=== PATIENT | male | born 1995 | race African-American/Black ===

== ENCOUNTER 2017-08-10 09:49 | Emergency (ER) | payer SELFPAY ==
[~2017-08-10] VITALS: Ht 167.6 cm; Wt 77.1 kg
[2017-08-10 10:06] VITALS: BP 146/85
[2017-08-10] MEDS ORDERED: SULF1TAB24 PO (10:23)
--- NOTE | 2017-08-10 10:23 | PHYS DOC ---
Past Medical History Past Medical History: No Pertinent History Past Surgical History: No Surgical History Additional Information: 4-7 CIGS/DAY Alcohol Use: Rarely Drug Use: None Adult General Chief Complaint Chief Complaint: EYE PROBLEMS HPI HPI Patient is a 22 year old male presents to the emergency department stating that he check his blood pressure this morning it was elevated. Patient states he only took his blood pressure once and it was on a monitor of the family members. Patient denies any headaches, blurred vision or any nausea vomiting denies any chest pain or shortness of air. Denies any lower leg swelling. Patient states that he is also requesting to be seen for redness above the right eyebrow that developed this morning with some swelling noted into the right upper eyelid. Patient denies fever, chills or any nausea or vomiting. Review of Systems Review of Systems Constitutional: Denies fever or chills [] Eyes: Denies change in visual acuity, redness, or eye pain [] HENT: Denies nasal congestion or sore throat [] Respiratory: Denies cough or shortness of breath [] Cardiovascular: No additional information not addressed in HPI [] GI: Denies abdominal pain, nausea, vomiting, bloody stools or diarrhea [] : Denies dysuria or hematuria [] Musculoskeletal: Denies back pain or joint pain [] Integument: Denies rash or skin lesions. Complaint of redness above the right eyebrow with swelling above the right eyebrow and down into the right upper eyelid. [] Neurologic: Denies headache, focal weakness or sensory changes [] Endocrine: Denies polyuria or polydipsia [] Allergies Allergies Allergies Coded Allergies Type Severity Reaction Last Updated Verified No Known Drug Allergies 11/08/14 No Physical Exam Physical Exam Constitutional: Well developed, well nourished, no acute distress, non-toxic appearance. [] HENT: Normocephalic, atraumatic, bilateral external ears normal, oropharynx moist, no oral exudates, nose normal. Bilateral tympanic membranes appear to be normal. Eyes: PERRLA, EOMI, conjunctiva normal, no discharge. [] Neck: Normal range of motion, no tenderness, supple, no stridor. [] Cardiovascular:Heart rate regular rhythm, no murmur [] Lungs & Thorax: Bilateral breath sounds clear to auscultation [] Skin: Warm, dry, no erythema, no rash. Patient with what feels like a cyst above the right eyebrow with redness noted in the upper eyebrow forehead area with swelling down into the upper eyelid. No drainage or discharge coming from the eye. Extremities: No tenderness, no cyanosis, no clubbing, ROM intact, no edema. [] Neurologic: Alert and oriented X 3, normal motor function, normal sensory function, no focal deficits noted. [] Psychologic: Affect normal, judgement normal, mood normal. [] Current Patient Data Vital Signs Vital Signs Date Time Temp Pulse Resp B/P (MAP) Pulse Ox O2 Delivery O2 Flow Rate FiO2 08/10/17 10:06 98.3 64 18 99 Room Air 98.3 EKG EKG [] Radiology/Procedures Radiology/Procedures [] Course & Med Decision Making Course & Med Decision Making Pertinent Labs and Imaging studies reviewed. (See chart for details) Spoke with patient in regards to blood pressures being monitored for the next month. Also spoke with him in regards to using inappropriate blood pressure size cuff as this will cause elevation in blood pressures if the cuff was too small. Patient was also instructed to keep a log of the blood pressures for the next month and follow-up with a primary care physician. Patient will be placed on Bactrim for skin infection in the upper right eyebrow forehead area. Recommended warm moist packs to the area. Patient was also recommended to use Tylenol or ibuprofen for pain and discomfort. Patient will be discharged home in stable condition signs and symptoms to return back to emergency department as been provided. All questions and concerns have been answered the patient's bedside. Patient agrees with discharge instructions, treatment regimens and follow-up recommendations. Patient was recommended to use warm moist packs to the area 4-5 times a day. [] Dragon Disclaimer Dragon Disclaimer This electronic medical record was generated, in whole or in part, using a voice recognition dictation system. Departure Departure Impression: Primary Impression: Cellulitis Disposition: 01 HOME, SELF-CARE Condition: STABLE Referrals: NO PCP (PCP) Patient Instructions: Cellulitis, [id number] Additional Instructions: Your blood pressure to day was 146/85 Medication as prescribed. Warm moist packs to your right forehead. Continue to monitor your blood pressure for the next 30 days and follow-up with her primary care physician. Tylenol or ibuprofen for pain and discomfort. Follow-up with your primary care physician in the next 1-2 weeks. Return back to emergency department for signs symptoms of become worse. Scripts Sulfamethoxazole/Trimethoprim (BACTRIM DS TABLET) 1 Each Tablet 1 TAB PO BID, #20 TAB Prov: WOLF ALICEA APRN 08/10/17 Problem Qualifiers Primary Impression: Cellulitis Site of cellulitis: unspecified site Qualified Codes: L03.90 - Cellulitis, unspecified WOLF ALICEA APRN Aug 10, 2017 10:23
== END 2017-08-10 10:31 | disposition home or self-care (01) ==
LOC: ER 09:49
DX: L03.211 Cellulitis of face (principal); F17.210 Nicotine dependence, cigarettes, uncomplicated
CPT/HCPCS: 99283